=== PATIENT | female | born 1995 | race Native Hawaiian/Other Pacific Islander ===

== ENCOUNTER 2021-09-18 13:06 | Outpatient (CLI) | payer OTHER | END 2021-09-18 18:58 | disposition home or self-care (01) | LOC: RAD 13:06 | PROVIDERS: ATTEND Internal Medicine | DX: R06.02 Shortness of breath (principal); R05.8 Other specified cough ==

== ENCOUNTER 2022-04-01 08:28 | Outpatient (CLI) | payer OTHER | END 2022-04-01 19:00 | disposition home or self-care (01) | LOC: MRI 08:28 | PROVIDERS: ATTEND Physician Assistant | DX: S83.241A Other tear of medial meniscus, current injury, right knee, initial encounter (principal); Y92.9 Unspecified place or not applicable ==

== ENCOUNTER 2023-02-24 11:17 | Emergency (ER) | payer OTHER ==
[~2023-02-24] VITALS: Ht 154.9 cm; Wt 131.5 kg
[2023-02-24 12:06] LABS: PLATELET COUNT 314 K/uL (152-353)
[2023-02-24 12:14] LABS: POTASSIUM 4.1 mmol/L (3.6-5.2)
[2023-02-24 13:20] VITALS: BP 129/77; TEMP 97.1
== END 2023-02-24 13:25 | disposition home or self-care (01) ==
LOC: ED 11:17
PROVIDERS: Emergency Medicine Emergency Medical Services
DX: N39.0 Urinary tract infection, site not specified (principal); Z20.822 Contact with and (suspected) exposure to COVID-19
CPT/HCPCS: 80048; 81000; 81025; 83735; 85027; 87088; 87502; 87635; 99283; U0001

== ENCOUNTER 2023-06-23 14:34 | Outpatient (CLI) | payer OTHER | END 2023-06-23 21:05 | disposition home or self-care (01) | LOC: MRI 14:34 | PROVIDERS: ATTEND Orthopaedic Surgery | DX: S83.511D Sprain of anterior cruciate ligament of right knee, subsequent encounter (principal); Y92.89 Other specified places as the place of occurrence of the external cause ==